=== PATIENT | male | born 1970 | race Caucasian/White ===

== ENCOUNTER 2019-11-03 03:46 | Emergency (ER) | payer MEDICARE, SELFPAY ==
[2019-11-03 03:50] VITALS: BP 117/69; PULSE 73; RESP 20; TEMP 36.3; O2SAT 98
--- NOTE | 2019-11-03 03:54 | ED.DENTAL ---
HPI - Dental/Oral General Stated complaint: tooth pain Time Seen by Provider: 11/03/19 03:55 Source: patient Mode of arrival: ambulatory Limitations: no limitations History of Present Illness HPI Narrative: 49-year-old male patient is here with the complaints of tooth pain. Patient states that about a week and a half ago he broke his right lower molar and since then the tooth has been irritating and has caused some abrasion to the undersurface of the tongue on the right side. Patient has not been seen by a dentist yet, patient states that the pain has been progressive and tonight he was unable to sleep because of the pain. He has had multiple dental fillings in the past and his last visit with the dentist was over a year ago. Patient does state that the pain has been progressive and he has been unable to eat solid foods. He denies any fever or chills, drooling and or inability to speak . Related Data Home Medications Medication Instructions Recorded Confirmed acetaminophen-codeine 1 tablet PO PRN PRN 11/03/19 11/03/19 atorvastatin 10 mg PO DAILY 11/03/19 11/03/19 famotidine 20 mg PO DAILY 11/03/19 11/03/19 Allergies Allergy/AdvReac Type Severity Reaction Status Date / Time No Known Allergies Allergy Verified 07/02/18 06:26 Review of Systems Review of Systems: All systems reviewed & are unremarkable except as noted in HPI and below PMFSH Past Medical History Medical History (Updated 11/03/19 @ 04:17 by Patricia Brush MD) Acid reflux disease Hypercholesteremia Social History Social History Smoking status: Never smoker Exam Const: General: healthy appearing, no acute distress and alert Orientation/consciousness: patient oriented x3 HENMT: Head: normal to inspection Mouth: Yes Normal oral and palatal mucosa present and Yes moist mucous membranes Teeth and gingiva: abnormal tooth and associated gingiva (Multiple fillings . # 30 is broken and tender , the filling is partially in) Throat: uvula midline Other: A small superficial ulceration is noted on the right lateral side of the tongue , no active bleeding or redness is seen Eyes: Pupils: Equal, round and reactive pupils present Neck: Neck: normal visual inspection and no lymphadenopathy Resp: Effort & Inspection: normal respiratory effort Cardio: Rate: regular rate Rhythm: regular rhythm Skin: General skin exam: normal color Rashes: no rashes Neuro: General: patient oriented x3 and no focal motor deficits Speech: normal speech Extrem: General: normal to inspection Psych: Mental Status: mental status grossly normal MDM - Dental/Oral MDM Narrative Medical decision making narrative: Dental fracture Will get the patient started on antibiotics. He states that he does not want anything for pain. Differential Diagnosis Differential diagnosis: Likely gingival abscess, dental caries, toothache, dental abscess, fracture of tooth and aphthous ulcer Discharge Plan Discharge Clinical Impression: Pain due to dental caries, Fracture of dental hoahaoism Patient Disposition: Home, Self-Care Condition: Stable Instructions: Antibiotic Form, Acute Dental Trauma (ED) Additional Instructions: Soft diet Follow up with the dentisit Prescriptions: New amoxicillin-pot clavulanate [Augmentin] 875-125 mg tablet 1 tablet PO Q12H Qty: 20 RF: 0 No Action atorvastatin 10 mg tablet 10 mg PO DAILY RF: 0 famotidine 20 mg tablet 20 mg PO DAILY RF: 0 acetaminophen-codeine 300-60 mg tablet 1 tablet PO PRN PRN (Reason: Pain) RF: 0 Follow-up/Referrals: NON-NURSING STAFF,ADMISSIONS [Primary Care Provider] -
[2019-11-03] MEDS: AMOXICILLIN/CLAVULANATE K 875-125 MG TAB 1 TABLET PO (04:16)
[2019-11-03 04:17] VITALS: BP 117/69; PULSE 73; RESP 20; TEMP 36.3; O2SAT 98
== END 2019-11-03 04:24 | disposition home or self-care (01) ==
PROVIDERS: Emergency Provider Emergency Medicine
DX: K08.89 Other specified disorders of teeth and supporting structures (principal); K02.9 Dental caries, unspecified; K08.539 Fractured dental restorative material, unspecified
CPT/HCPCS: 99283; A9270

== ENCOUNTER 2019-12-29 13:07 | Emergency (ER) | payer MEDICARE, SELFPAY ==
--- NOTE | ~2019-12-29 | XR_ITS ---
XR chest 1V portable DATE: 12/29/2019 13:40 INDICATION: Dyspnea for 2 days. History of Covid exposure. TECHNIQUE: Portable upright AP chest on 12/29/2019 at 1337 hours COMPARISON: 04/15/2012 two-view chest 04/15/2012 CT pulmonary scan FINDINGS: Normal heart size. No hilar or mediastinal enlargement. Mild aortic unfolding. No pulmonary infiltrate or consolidation, pleural effusion or pulmonary vascular congestion or pneumo thorax. Osteopenia. IMPRESSION: No active cardiopulmonary disease Reviewed, dictated and finalized at location A.
[2019-12-29 13:10] VITALS: BP 104/58; PULSE 86; RESP 26; TEMP 36.5; O2SAT 99
--- NOTE | 2019-12-29 13:19 | ECG_ITS ---
Measurements Intervals [place] Rate: 77 P: 59 NV: 192 QRS: 50 QRSD: 106 T: 41 QT: 356 QTc: 404 Interpretive Statements SINUS RHYTHM BASELINE WANDER- V1 NORMAL ECG Electronically Signed On 12-29-2019 13:51:12 CDT by Woody Franco D.O.
--- NOTE | 2019-12-29 13:19 | ED.SOB ---
HPI - SOB/Dyspnea General Chief Complaint: Shortness of Breath/Dyspnea Stated Complaint: ambulance Related Data Home Medications Medication Instructions Recorded Confirmed acetaminophen-codeine 1 tablet PO PRN PRN 11/03/19 11/03/19 atorvastatin 10 mg PO DAILY 11/03/19 11/03/19 famotidine 20 mg PO DAILY 11/03/19 11/03/19 Allergies Allergy/AdvReac Type Severity Reaction Status Date / Time No Known Allergies Allergy Verified 07/02/18 06:26 [facility], [facility] Past Medical History Medical History (Updated 11/04/19 @ 00:00 by Rabia Gramajo) Acid reflux disease Hypercholesteremia Social History Social History Smoking status: Never smoker Discharge Plan Discharge Prescriptions: No Action atorvastatin 10 mg tablet 10 mg PO DAILY RF: 0 famotidine 20 mg tablet 20 mg PO DAILY RF: 0 acetaminophen-codeine 300-60 mg tablet 1 tablet PO PRN PRN (Reason: Pain) RF: 0 amoxicillin-pot clavulanate [Augmentin] 875-125 mg tablet 1 tablet PO Q12H Qty: 20 RF: 0
[2019-12-29 13:29] VITALS: O2SAT 97
--- NOTE | 2019-12-29 13:45 | PC.NURSE ---
Pt refusing abg, edp aware.
[2019-12-29 13:48] LABS: Basophils Absolute Auto 0.05 K/mm3 (0.00-0.10); Eosinophils Percent Auto 2.1 % (1.0-6.0); Hematocrit 46.7 % (40.0-54.0); Immature Granulocyte Absolute 0.02 K/mm3 (0.00-0.00); Immature Granulocyte Percent A 0.4 % (0.0-0.0); Lymphocytes Absolute Auto 1.71 K/mm3 (1.10-4.50); Lymphocytes Percent Auto 35.6 % (18.0-42.0); Mean Corpuscular HGB Conc 36.4 g/dL (32.0-36.0); Mean Corpuscular Hemoglobin 31.3 pg (27.0-31.0); Mean Platelet Volume 10.3 fl (8.7-11.0); Monocytes Absolute Auto 0.43 K/mm3 (0.10-0.90); Neutrophils Absolute Auto 2.5 K/mm3 (1.7-7.2); Neutrophils Percent Auto 51.9 % (50.0-70.0); Platelet Count Result 190 K/mm3 (150-420); Red Blood Count 5.43 M/mm3 (4.70-6.10); Red Cell Distribution Width 12.3 % (11.6-14.4); White Blood Count 4.8 K/mm3 (4.8-10.8)
[2019-12-29 14:07] LABS: BNP 5.5 pg/mL (0-100); Lactic Acid 1.5 mmol/L (0.4-2.0)
[2019-12-29 14:09] LABS: Alanine Aminotransferase 35 U/L (16-63); Albumin Level 3.7 g/dL (3.4-5.0); Alkaline Phosphatase 98 U/L (46-116); Anion Gap 9 mmol/L (8-16); Aspartate Amino Transferase 26 U/L (15-37); Bilirubin,Total 0.5 mg/dL (0.00-1.00); Blood Urea Nitrogen 14 mg/dL (7-18); Calcium 9.3 mg/dL (8.5-10.1); Carbon Dioxide 23 mmol/L (21-32); Chloride 104 mmol/L (98-108); Estimated CRCL calculation 51 ml/min; Estimated Glomerular Filt Rate 52; Glucose 106 mg/dL (70-99); Magnesium 1.9 mg/dL (1.8-2.4); Osmolality Calculated 282 mOsm/kg (285-295); Potassium 3.8 mmol/L (3.5-5.1); Sodium 136 mmol/L (136-145); Total Protein 7.7 g/dL (6.4-8.2)
[2019-12-29 14:11] LABS: Troponin I < 0.02 ng/mL (0.00-0.056)
[2019-12-29 14:26] VITALS: BP 132/77; PULSE 86; RESP 20; O2SAT 98
[2019-12-29 16:08] LABS: D Dimer 0.27 ug/mL (<0.48)
== END 2019-12-29 14:29 | disposition home or self-care (01) ==
PROVIDERS: Emergency Provider Emergency Medicine
DX: J06.9 Acute upper respiratory infection, unspecified (principal)
CPT/HCPCS: 36415; 36600; 71045; 80053; 83605; 83735; 83880; 84484; 85025; 85380; 87040; 93005; 99283; 99284

== ENCOUNTER 2021-03-18 12:47 | Outpatient (CLI) | payer MEDICARE, SELFPAY ==
[2021-03-18 12:58] LABS: Basophils Absolute Auto 0.04 K/mm3 (0.00-0.10); Basophils Percent Auto 0.7 % (0.0-1.0); Eosinophils Absolute Auto 0.08 K/mm3 (0.02-0.50); Eosinophils Percent Auto 1.4 % (1.0-6.0); Hematocrit 49.9 % (40.0-54.0); Hemoglobin 17.5 g/dL (14.0-18.0); Immature Granulocyte Absolute 0.02 K/mm3 (0.00-0.00); Immature Granulocyte Percent A 0.4 % (0.0-0.0); Lymphocytes Absolute Auto 1.63 K/mm3 (1.10-4.50); Lymphocytes Percent Auto 28.6 % (18.0-42.0); Mean Corpuscular HGB Conc 35.1 g/dL (32.0-36.0); Mean Corpuscular Hemoglobin 30.5 pg (27.0-31.0); Mean Corpuscular Volume 86.9 fL (78.0-102.0); Mean Platelet Volume 9.8 fl (8.7-11.0); Monocytes Absolute Auto 0.58 K/mm3 (0.10-0.90); Monocytes Percent Auto 10.2 % (2.0-11.0); Neutrophils Absolute Auto 3.3 K/mm3 (1.7-7.2); Neutrophils Percent Auto 58.7 % (50.0-70.0); Platelet Count Result 211 K/mm3 (150-420); Red Blood Count 5.74 M/mm3 (4.70-6.10); Red Cell Distribution Width 12.3 % (11.6-14.4); White Blood Count 5.7 K/mm3 (4.8-10.8)
[2021-03-18 13:38] LABS: Alanine Aminotransferase 36 U/L (16-63); Albumin Level 4.1 g/dL (3.4-5.0); Alkaline Phosphatase 112 U/L (46-116); Aspartate Amino Transferase 30 U/L (15-37); Bilirubin Direct 0.2 mg/dL (0-0.2); Bilirubin,Total 0.8 mg/dL (0.00-1.00); Cholesterol 183 mg/dL (0-200); HDL Direct 40 mg/dL (40-60); LDL Cholesterol Calculated 120 mg/dL (<130); Prostate Specific Antigen 2.4 ng/mL (< OR = 4.0); Total Protein 7.5 g/dL (6.4-8.2); Triglycerides 115 mg/dL (0-150)
[2021-03-23 11:09] LABS: Testosterone Free 79.1 pg/mL (35.0-155.0); Testosterone Total 659 ng/dL (250-1100)
== END 2021-03-18 12:48 | disposition home or self-care (01) ==
LOC: CHSLAB 12:49
PROVIDERS: PCP Family Medicine; Visit Provider Family Medicine
DX: E78.00 Pure hypercholesterolemia, unspecified (principal); Z13.220 Encounter for screening for lipoid disorders; Z12.5 Encounter for screening for malignant neoplasm of prostate; N52.9 Male erectile dysfunction, unspecified
CPT/HCPCS: 36415; 80061; 80076; 84153; 84402; 84403; 85025; G0103

== ENCOUNTER 2021-09-14 16:30 | Outpatient (CLI) | payer MEDICARE, SELFPAY ==
[2021-09-14 17:04] LABS: Anion Gap 12 mmol/L (8-16); Blood Urea Nitrogen 15 mg/dL (7-18); Calcium 9.6 mg/dL (8.5-10.1); Carbon Dioxide 22 mmol/L (21-32); Chloride 103 mmol/L (98-108); Estimated Glomerular Filt Rate > 60; Glucose 95 mg/dL (70-99); Osmolality Calculated 284 mOsm/kg (285-295); Potassium 4.5 mmol/L (3.5-5.1); Sodium 137 mmol/L (136-145)
== END 2021-09-14 16:31 | disposition home or self-care (01) ==
LOC: CHSLAB 16:31
PROVIDERS: PCP Family Medicine; Visit Provider Family Medicine
DX: M32.8 Other forms of systemic lupus erythematosus (principal)
CPT/HCPCS: 36415; 80048

== ENCOUNTER 2021-10-31 12:19 | Outpatient (CLI) | payer MEDICARE, SELFPAY ==
--- NOTE | ~2021-10-31 | XR_ITS ---
EXAMINATION: XR finger 4th LT min 2V DATE: 10/31/2021 12:44 INDICATION: Pain at the fourth proximal phalanx and metacarpophalangeal joints TECHNIQUE: Dorsal palmar, lateral and 2 oblique views of the right fourth digit were obtained COMPARISON: None FINDINGS: Bone alignment is normal. No fracture. Mild osteoarthritis at the and third-fifth distal interphalang eal joints. Soft tissues are unremarkable. No erosions to suggest inflammatory arthritis. Soft tissue s are unremarkable. IMPRESSION: 1. 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 No acute osseous abnorma lity. Reviewed, dictated and finalized at location A. IMPRESSION: 1. 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 No acute osseous abnormality.
== END 2021-10-31 12:20 | disposition home or self-care (01) ==
LOC: CHSIMG 12:22
PROVIDERS: PCP Family Medicine; Visit Provider Family Medicine
DX: S69.90XA Unspecified injury of unspecified wrist, hand and finger(s), initial encounter (principal)
CPT/HCPCS: 73140

== ENCOUNTER 2022-03-21 08:31 | Outpatient (CLI) | payer MEDICARE, SELFPAY ==
[2022-03-21 08:44] LABS: Basophils Absolute Auto 0.04 K/mm3 (0.00-0.10); Basophils Percent Auto 0.7 % (0.0-1.0); Eosinophils Absolute Auto 0.22 K/mm3 (0.02-0.50); Eosinophils Percent Auto 4.1 % (1.0-6.0); Hematocrit 47.9 % (40.0-54.0); Hemoglobin 16.6 g/dL (14.0-18.0); Immature Granulocyte Absolute 0.03 K/mm3 (0.00-0.00); Immature Granulocyte Percent A 0.6 % (0.0-0.0); Lymphocytes Absolute Auto 1.61 K/mm3 (1.10-4.50); Lymphocytes Percent Auto 29.7 % (18.0-42.0); Mean Corpuscular HGB Conc 34.7 g/dL (32.0-36.0); Mean Corpuscular Hemoglobin 30.5 pg (27.0-31.0); Mean Corpuscular Volume 87.9 fL (78.0-102.0); Monocytes Absolute Auto 0.46 K/mm3 (0.10-0.90); Monocytes Percent Auto 8.5 % (2.0-11.0); Neutrophils Absolute Auto 3.1 K/mm3 (1.7-7.2); Neutrophils Percent Auto 56.4 % (50.0-70.0); Platelet Count Result 193 K/mm3 (150-420); Red Blood Count 5.45 M/mm3 (4.70-6.10); Red Cell Distribution Width 12.6 % (11.6-14.4); White Blood Count 5.4 K/mm3 (4.8-10.8)
[2022-03-21 09:50] LABS: Alanine Aminotransferase 94 U/L (16-63); Albumin Level 3.8 g/dL (3.4-5.0); Alkaline Phosphatase 96 U/L (46-116); Anion Gap 8 mmol/L (8-16); Aspartate Amino Transferase 61 U/L (15-37); Bilirubin Direct 0.1 mg/dL (0-0.2); Bilirubin,Total 0.5 mg/dL (0.00-1.00); Blood Urea Nitrogen 15 mg/dL (7-18); Calcium 8.9 mg/dL (8.5-10.1); Carbon Dioxide 28 mmol/L (21-32); Chloride 104 mmol/L (98-108); Cholesterol 204 mg/dL (0-200); Estimated Glomerular Filt Rate > 60; Glucose 94 mg/dL (70-99); HDL Direct 51 mg/dL (40-60); LDL Cholesterol Calculated 123 mg/dL (<130); Osmolality Calculated 290 mOsm/kg (285-295); Potassium 4.2 mmol/L (3.5-5.1); Sodium 140 mmol/L (136-145); Total Protein 7.2 g/dL (6.4-8.2); Triglycerides 152 mg/dL (0-150)
== END 2022-03-21 08:32 | disposition home or self-care (01) ==
LOC: CHSLAB 08:34
PROVIDERS: PCP Family Medicine; Visit Provider Family Medicine
DX: M32.9 Systemic lupus erythematosus, unspecified (principal); E78.00 Pure hypercholesterolemia, unspecified; Z13.220 Encounter for screening for lipoid disorders; Z12.5 Encounter for screening for malignant neoplasm of prostate; M65.342 Trigger finger, left ring finger
CPT/HCPCS: 36415; 80048; 80061; 80076; 84153; 85025; G0103

== ENCOUNTER 2022-04-07 10:40 | Outpatient (CLI) | payer MEDICARE, SELFPAY ==
[2022-04-11 02:44] LABS: Hepatitis A Antibody IgM Nonreactive; Hepatitis B Core Antibody Nonreactive (Nonreactive); Hepatitis B Surface Antigen Nonreactive (Nonreactive); Hepatitis C Signal to Cutoff 0.01 ratio (<1.00); Hepatitis C Virus Antibody Nonreactive (Nonreactive)
== END 2022-04-07 10:41 | disposition home or self-care (01) ==
LOC: CHSLAB 10:42
PROVIDERS: PCP Family Medicine; Visit Provider Family Medicine
DX: R79.89 Other specified abnormal findings of blood chemistry (principal); R74.01 Elevation of levels of liver transaminase levels
CPT/HCPCS: 36415; 80074

== ENCOUNTER 2022-12-07 13:31 | Outpatient (CLI) | payer MEDICARE, SELFPAY ==
--- NOTE | 2022-12-07 14:09 | ECG_ITS ---
Measurements Intervals [place] Rate: 77 P: 52 WV: 201 QRS: -7 QRSD: 114 T: 42 QT: 360 QTc: 409 Interpretive Statements SINUS RHYTHM BORDERLINE AV CONDUCTION DELAY INTRAVENTRICULAR CONDUCTION DELAY BORDERLINE ECG COMPARED TO ECG 12/29/2019 13:36:07 INTRAVENTRICULAR CONDUCTION DELAY NOW PRESENT Electronically Signed On 12-07-2022 14:16:28 CDT by Woody Franco D.O.
[2022-12-07 15:04] LABS: Prothrombin Time 13.1 Seconds (11.1-14.7)
[2022-12-07 15:05] LABS: Partial Thromboplastin Time 29.1 SECONDS (22.3-36.8)
[2022-12-07 15:07] LABS: Anion Gap 5 mmol/L (8-16); Blood Urea Nitrogen 16 mg/dL (9-20); Calcium 8.8 mg/dL (8.4-10.2); Carbon Dioxide 28 mmol/L (22-30); Chloride 104 mmol/L (98-107); Estimated Glomerular Filt Rate > 60; Glucose 96 mg/dL (65-110); Potassium 3.9 mmol/L (3.4-5.0); Sodium 137 mmol/L (137-145)
== END 2022-12-07 13:32 | disposition home or self-care (01) ==
PROVIDERS: PCP Family Medicine; Visit Provider Anesthesiology
DX: K40.90 Unilateral inguinal hernia, without obstruction or gangrene, not specified as recurrent (principal); N28.9 Disorder of kidney and ureter, unspecified; E78.00 Pure hypercholesterolemia, unspecified; Z01.818 Encounter for other preprocedural examination
CPT/HCPCS: 36415; 80048; 85610; 85730; 86850; 86900; 86901; 93005

== ENCOUNTER 2022-12-13 04:22 | Day surgery (SDC) | payer MEDICARE, SELFPAY ==
--- NOTE | 2022-12-05 15:37 | PC.NURSE ---
Report to the Outpatient Waiting Room, entrance under the green pavilion located off [facility], at time 0600 on date 12/13/22. Planned Procedure Time: 0730. Time changes happen often and if your time is changed the preop area will call you the afternoon before. - You and your visitor will be asked to self-screen and do not enter if you have any COVID symptoms. - A mask is optional within the hospital at this time. Patients may have clear liquids (water, carbonated beverages, clear teas, apple juice) until 3 hours prior to surgery with a maximum of 20 ounces. 0430 - No food from midnight until time of surgery - Infants may have breast milk until 4 hours before surgery, formula 6 hours prior to surgery. - Children will be allowed to drink immediately following surgery. If applicable, please bring a bottle or sippy cup to assist with drinking. Juice, water, soda, and popsicles are readily available. For infants on formula, please bring formula the day of surgery. Pacifiers are allowed. Take the following medications with a SIP of water the morning of surgery: none DO NOT STOP ANY OF YOUR OTHER PRESCRIPTION MEDICATIONS PRIOR TO SURGERY ?EXCEPT THE FOLLOWING Medications to discontinue per physician atorvastatin, famotadine, sildenafil Date to take last dose12/12/22 Please no make-up, nail urdu, hairspray, perfume, deodorant, or body powder the day of surgery. No jewelry (including any body piercings) or valuables the day of surgery, leave them at home. Please take a shower or bath the night before, or the morning of, surgery with an antibacterial soap HIBICLENS. Wear comfortable, loose fitting clothing. Children are encouraged to wear pajamas. - Jewelry must be removed prior to entering the operating room. Rings and piercings that are not removed may be cut off. - The hospital will not accept responsibility for valuables. - Please leave all valuables, including medications, at home the day of surgery. If you are going home after surgery, a licensed water truck driver must drive you home. - NO public transportation without another adult if you receive anesthesia. - We recommend that an adult stay with you for 24 hours following discharge. - We also recommend that you do not drive, make important decision, drink alcoholic beverages, or take any drugs that were not prescribed by your health care provider for at least 24 hours after your discharge time. For Pediatric surgeries, we recommend two adults accompany the child home. Follow any additional instructions given to you from your surgeon. If you or anyone in your household have experienced Covid symptoms in the past week, please notify your surgeon or the nurse liaison at the phone number below for possible testing. Telephone instructions given to Brock Gaspar and asked if any additional questions and then verbalized understanding. Patient advised to call surgeon office or pre surgery nurse liaison [phone] if any additional questions.
[2022-12-05 15:50] VITALS: BMI 27.4
--- NOTE | 2022-12-12 10:10 | WPDANESEPPF ---
Anes - Initial Pre Proc Eval Procedure: Operation Date: 12/13/22 07:30 Proposed Procedures p Laparoscopic Right Inguinal Hernia Repair with Mesh, Davinci Assisted - Osmar Grigsby DO Date/Time: 12/12/22 10:10 Surgeon: Osmar Grigsby DO Pre Op Diagnosis: Right Inguinal Hernia Patient Data Age: 52 Gender: M Height: 1.7 m Weight: 79.5 kg Allergies Allergy/AdvReac Type Severity Reaction Status Date / Time No Known Allergies Allergy Verified 12/13/22 06:16 Home Medications Medication Instructions Recorded Confirmed Type sildenafil 100 mg tablet 100 mg PO DAILY PRN sexual 07/19/22 12/05/22 Rx activity #30 tabs acetaminophen 300 mg-codeine 60 mg 1 tablet PO Q8H PRN Pain #90 tabs 11/17/22 12/05/22 Rx tablet famotidine 20 mg tablet 20 mg PO DAILY #90 tabs 11/17/22 12/05/22 Rx atorvastatin 10 mg tablet 10 mg PO DAILY 12/05/22 12/05/22 History hydrocodone 5 mg-acetaminophen 325 1 tablet PO Q4H PRN pain #10 tabs 12/13/22 Rx mg tablet Patient hx anesthesia problems: none Family hx anesthesia problems: none Results Review: All pre-operative results and documents have been reviewed as part of the pre-operative evaluation. [facility] Past Medical History Medical History (Updated 11/27/22 @ 13:45 by Sheela Pantoja) Acid reflux disease BMI 25.0-25.9,adult BMI 26.0-26.9,adult Elevated liver function tests Elevated PSA Erectile dysfunction History of blood transfusion Hx pulmonary embolism Hypercholesteremia Left trigger finger Lupus Screen for colon cancer Screening for prostate cancer Social History Social History Smoking status: Never smoker Alcohol intake: never Substance use: current Substance use type: marijuana Other substance usage details: daily user Living arrangements: with family Occupation/Education: other Additional occupation/education comments: Disabled Gender identity (if verbalized by the patient): Male Sexual Orientation (if Verbalized by the Patient): Straight or Heterosexual Spiritual care concerns: No Anes - Eval Final PreProcedure Day of Procedure 12/12/22 10:10 Patient weight: overweight Heart: regular rate and rhythm Lungs: clear to auscultation Airway: Mallampati scale class II Neurological: alert and oriented Last oral intake: >/= 8 hours ASA classification: III Emergent: no Anesthetic plan: proceed Anesthesia type and monitoring: general ETT and standard monitoring Results Review: All pre-operative results and documents have been reviewed as part of the pre-operative evaluation. Informed Consent: The patient's anesthetic plan and its attendant risks and benefits were discussed with the patient/family/POA. Questions were solicited and answers provided to the satisfaction of the patient/family/POA.
[2022-12-13] VITALS (9 sets, daily range): BP systolic 116–141; BP diastolic 80–101; PULSE 63–79; RESP 14–20; TEMP 36.4–36.6; O2SAT 97–100
[2022-12-13] MEDS: ACETAMINOPHEN 500 MG TABLET 1000 MG PO (06:27)
[2022-12-13] MEDS: LACTATED RINGERS 1,000 ML 30 ML IV CONT ×2 (06:40→09:06)
--- NOTE | 2022-12-13 07:09 | WPDHPUPDATE1 ---
History and Physical Update Update Date/Time: 12/13/22 07:09 History and Physical has been reviewed, including an updated exam of the patient. There are NO changes in the patient's condition. Risks, benefits, and alternatives have been discussed and questions answered. Patient agrees to proceed with procedure.
[2022-12-13] MEDS: KETOROLAC 15 MG/ML VIAL (*BKC) IV PUSH (07:12)
[2022-12-13] MEDS: ceFAZolin 2 GM/D5W 50 ML 2 GM/50 ML BAG IVPB (07:26)
[2022-12-13] MEDS: BUPIVACAINE/EPINEPHRINE 0.5% 10 ML VIAL 22 ML INFILTRATE (07:57)
--- NOTE | 2022-12-13 08:37 | W.PM.PROC2 ---
Procedure Note - Detailed Date of Procedure 12/13/22 Pre-op Diagnosis Right Inguinal Hernia Post-op Diagnosis Same (Indirect RIH) Procedure Performed Laparoscopic right inguinal hernia repair with mesh, da Mulu assisted Surgeon Osmar Grigsby DO Anesthesia General and Local (0.5% bupivacaine with epinephrine) Indications This is a 52-year-old man who noticed a right inguinal bulge about 4 months ago. He has some discomfort in this area. He was found to have a reducible right inguinal hernia on physical exam. Discussions were made with the patient about treatment options and decision was made to proceed with robotic assisted laparoscopic right inguinal hernia repair with mesh. Findings Laparoscopic right inguinal hernia repair was performed. The patient was found to have a small indirect right inguinal hernia. A robotic transabdominal preperitoneal approach was utilized. Once a wide enough preperitoneal pocket was created and the hernia sac was reduced, I then placed a large right Bard 3DMax mid mesh overlying the entire right myopectineal orifice. Description of Procedure Procedure as well as risks, benefits, and alternatives were discussed with the patient. Written consent was obtained and placed in chart prior to procedure. Patient was brought back to surgical suite. He was placed supine on operating table. Time-out was done to confirm patient and procedure. He was then intubated by Anesthesia Department. His abdomen was prepped and draped in sterile fashion using chlorhexidine prep. 0.5% bupivacaine with epinephrine was infiltrated at each location for incision. An 8 mm incision was made in the left lateral abdomen, and a 5 mm Optiview trocar was advanced through the abdominal layers under direct visualization. Once inside the abdominal cavity, carbon dioxide insufflation was used to create a pneumoperitoneum. A camera was inserted and the abdominal cavity was inspected. The patient was placed in slight Trendelenburg position. An 8 millimeter incision was made on the right lateral abdomen and an 8 millimeter trocar was inserted under direct visualization. Another 8 millimeter incision was made just superior to the umbilicus and an 8 millimeter trocar was inserted under direct visualization. The 5 mm port was then removed and this was replaced with another 8 mm robotic port. The robotic arms were brought up to the patient's bedside and secured to the ports. The camera and instruments were inserted. I then moved over to the robotic console and took control of the camera and instruments. After careful inspection of the abdominal cavity, I began scoring the peritoneum along the right lower quadrant using scissors with electrocautery. The preperitoneal plane was entered and this was carefully dissected caudally along the inferior epigastric vessels. Careful dissection with scissors with electrocautery and blunt dissection was used to continue this dissection. I dissected far enough laterally to allow for mesh placement, and also dissected medially to identify the pubic arch and Vu's ligament. The hernia sac was identified and carefully dissected posteriorly. The cord contents were also identified and the peritoneum was carefully dissected far enough posteriorly to allow for mesh placement. Once an adequate pocket was created, I then placed the mesh within the preperitoneal pocket and carefully unfolded it. The mesh was centered on the hernia defect with adequate overlap circumferentially. The inferior edge of the mesh was inspected to ensure that it was far enough away from the peritoneal edge. The mesh appeared in proper position overlying the entire myopectineal orifice. The mesh was secured using 3-0 Vicryl simple interrupted sutures in Vu's ligament, the superior medial edge, and superior lateral edge of the mesh. The peritoneum was then closed over the mesh using a 3-0 V-lock running absorbable suture. The robotic instrument
[2022-12-13] MEDS: oxyCODONE HCL (*CRX) 5 MG TAB IR PO (10:06)
== END 2022-12-13 11:00 | disposition home or self-care (01) ==
PROVIDERS: PCP Family Medicine; Visit Provider Surgery
PROC: 8E0Y4CZ Robotic Assisted Procedure of Lower Extremity, Percutaneous Endoscopic Approach (ICD-10-PCS; CPT 49650; principal; 2022-12-13 07:30)
DX: K40.90 Unilateral inguinal hernia, without obstruction or gangrene, not specified as recurrent (principal); K21.9 Gastro-esophageal reflux disease without esophagitis; E78.00 Pure hypercholesterolemia, unspecified; Z86.711 Personal history of pulmonary embolism; F12.90 Cannabis use, unspecified, uncomplicated
CPT/HCPCS: 49650; S2900; 36415; 80048; 85610; 85730; 86850; 86900; 86901; 93005; A9270; C1781; J0690; J1100; J1885; J2250; J2405; J2704; J3010; J7030; J7120

== ENCOUNTER 2023-10-01 13:23 | Outpatient (CLI) | payer MEDICARE, SELFPAY ==
[2023-10-01 13:38] LABS: Basophils Absolute Auto 0.03 K/mm3 (0.00-0.10); Basophils Percent Auto 0.6 % (0.0-1.0); Eosinophils Absolute Auto 0.34 K/mm3 (0.02-0.50); Eosinophils Percent Auto 7.2 % (1.0-6.0); Hematocrit 48.7 % (40.0-54.0); Hemoglobin 16.8 g/dL (14.0-18.0); Immature Granulocyte Absolute 0.02 K/mm3 (0.00-0.00); Immature Granulocyte Percent A 0.4 % (0.0-0.0); Lymphocytes Absolute Auto 1.96 K/mm3 (1.10-4.50); Lymphocytes Percent Auto 41.6 % (18.0-42.0); Mean Corpuscular HGB Conc 34.5 g/dL (32-36); Mean Corpuscular Hemoglobin 29.7 pg (27.0-31.0); Mean Corpuscular Volume 86.2 fL (78.0-102.0); Monocytes Absolute Auto 0.45 K/mm3 (0.10-0.90); Monocytes Percent Auto 9.6 % (2.0-11.0); Neutrophils Absolute Auto 1.91 K/mm3 (1.70-7.20); Neutrophils Percent Auto 40.6 % (50.0-70.0); Platelet Count Result 191 K/mm3 (150-420); Red Blood Count 5.65 M/mm3 (4.70-6.10); Red Cell Distribution Width 12.8 % (11.6-14.4); White Blood Count 4.7 K/mm3 (4.8-10.8)
[2023-10-01 14:39] LABS: Alanine Aminotransferase 39 U/L (16-63); Albumin Level 3.6 g/dL (3.4-5.0); Alkaline Phosphatase 90 U/L (46-116); Anion Gap 10 mmol/L (4-12); Aspartate Amino Transferase 24 U/L (15-37); Bilirubin,Total 0.4 mg/dL (0.00-1.00); Blood Urea Nitrogen 15 mg/dL (7-18); Calcium 9.3 mg/dL (8.5-10.1); Carbon Dioxide 28 mmol/L (21-32); Chloride 102 mmol/L (98-108); Cholesterol 161 mg/dL (0-200); Estimated Glomerular Filt Rate > 60; Glucose 101 mg/dL (70-99); HDL Direct 48 mg/dL (40-60); LDL Cholesterol Calculated 78 mg/dL (<130); Osmolality Calculated 290 mOsm/kg (285-295); Potassium 4.1 mmol/L (3.5-5.1); Prostate Specific Antigen 3.2 ng/mL (< OR = 4.0); Sodium 140 mmol/L (136-145); Total Protein 6.9 g/dL (6.4-8.2); Triglycerides 175 mg/dL (0-150)
[2023-10-01 15:09] LABS: Thyroid Stimulating Hormone Reflex 1.43 u/IU/mL (0.36-3.74)
== END 2023-10-01 13:24 | disposition home or self-care (01) ==
LOC: CHSLAB 13:25
PROVIDERS: PCP Family Medicine; Visit Provider Physician Assistant
DX: E78.00 Pure hypercholesterolemia, unspecified (principal); R79.89 Other specified abnormal findings of blood chemistry; Z12.5 Encounter for screening for malignant neoplasm of prostate; M32.9 Systemic lupus erythematosus, unspecified
CPT/HCPCS: 36415; 80053; 80061; 84153; 84443; 85025; G0103

== ENCOUNTER 2025-01-20 09:07 | Emergency (ER) | payer MEDICARE, SELFPAY ==
[2025-01-20 09:08] VITALS: BP 128/82; PULSE 80; RESP 18; TEMP 37.1; O2SAT 96
--- NOTE | 2025-01-20 09:17 | ED_ITS ---
HPI - Head Injury General Chief complaint: Head Injury Stated complaint: hit head on corner of cabinet Time Seen by Provider: 01/20/25 09:17 Source: patient Mode of arrival: ambulatory Limitations: no limitations History of Present Illness HPI Narrative: patient was trying to get up from a kneeling position head the top of his head against the cabinet corner, prior to arrival. He denies any fever, chills, nausea, vomiting, headache, loss of consciousness or neck pain or other injuries patient does not remember when last time had tetanus shot and declined to get 1 today. Related Data Allergies Allergy/AdvReac Type Severity Reaction Status Date / Time No Known Allergies Allergy Verified 01/20/25 09:10 Review of Systems Review of Systems: All systems reviewed & are unremarkable except as noted in HPI and below PMFSH Past Medical History Medical History Hx pulmonary embolism History of blood transfusion Elevated PSA Elevated liver function tests Left trigger finger BMI 26.0-26.9,adult Erectile dysfunction Screen for colon cancer Screening for prostate cancer Lupus Acid reflux disease Hypercholesteremia Surgical History Surgical History H/O right inguinal hernia repair 12/13/22 right inguinal hernia repair with mesh, davinci assisted. Social History Social History Smoking status: Never smoker Alcohol intake: never Substance use: current Substance use type: marijuana Other substance usage details: daily user Do You Feel Safe in your Home?: Yes Lack of Transportation: No Lack of Food: Never True Current Housing: I Have Housing Concerned About Future Housing: No Difficulty Paying Gas/Electric Bills: No Difficulty Paying for Meds: No Currently Unemployed: No Education: High School Diploma/GED Difficulty w/ Childcare or Family Care: No Living arrangements: with family Occupation/Education: other Additional occupation/education comments: Disabled Gender identity (if verbalized by the patient): Male Sexual Orientation (if Verbalized by the Patient): Straight or Heterosexual Spiritual care concerns: No Exam Narrative: General appearance: Well-developed, well-nourished Skin: Normal color Head: Normocephalic, 1 cm abrasion at the top of the head Eyes: Clear conjunctiva ENT: Oropharynx normal, ears normal, nose normal Neck: Supple, nontender Chest and respiratory: Airway patent, no respiratory distress, no accessory muscle use Heart: Regular rate/rhythm Musculoskeletal: Normal range of motion, nontender back Neurologic: Alert and oriented ?3, [employer] is normal as tested, no gross motor deficit Course Vital Signs Vital signs: Vital Signs Temperature 37.1 C 01/20/25 09:08 Pulse Rate 80 01/20/25 09:08 Respiratory Rate 18 01/20/25 09:08 Blood Pressure 128/82 01/20/25 09:08 Pulse Oximetry 96 01/20/25 09:08 Oxygen Delivery Room Air 01/20/25 09:08 Temperature 37.1 C 01/20/25 09:08 Pulse Rate 80 01/20/25 09:08 Respiratory Rate 18 01/20/25 09:08 Blood Pressure 128/82 01/20/25 09:08 Pulse Oximetry 96 01/20/25 09:08 Oxygen Delivery Room Air 01/20/25 09:08 Critical Care Time Critical Care Time Critical Care Time: No Discharge Plan Discharge Clinical Impression: Abrasion of scalp Patient Disposition: Home Condition: Stable Instructions: Head Injury (ED), Abrasion (ED) Additional Instructions: Return if symptoms are worsening , call your family physician for appointment, take Tylenol as as needed for aches and pain, continue home medications. Topical Neosporin Patient Language: Urdu Prescriptions: No Action atorvastatin 10 mg tablet 10 mg PO DAILY Qty: 90 1RF famotidine 20 mg tablet 20 mg PO DAILY Qty: 90 1RF sildenafil 100 mg tablet 100 mg PO DAILY PRN (Reason: sexual activity) Qty: 30 2RF Rx Instructions: administer 30 minutes to 4 hours before activity acetaminophen-codeine 300-60 mg tablet 1 tablet PO Q8H PRN (Reason: Pain) Qty: 90 0RF Follow-up/Referrals: Angel Martinez MD [Primary Care Provider, Family Practice]
--- NOTE | 2025-01-20 09:17 | PC.NURSE ---
MD Naveen at bedside for pt examination. MD informs pt that he will need a tetnus shot. Pt refuses. MD educates pt on risks of not receiving tetanus vaccine. Pt still refusing after MD education.
--- OUTSIDE RECORDS SUMMARY | 2025-01-20 09:19 | XMS_ITS | Clinical Summary ---
Author Organization [facility] Address [address] [place] [address] Phone Care Team Providers Care Restaurant Line Server Name Role Phone Unavailable Primary Care Provider Unavailabl e Allergies No known active allergies Medications ibuprofen (ADVIL,MOTRIN) 200 MG tablet prn 06/16/2013 Active Active Problems Problem Noted Date Diagnosed Date Nonspecific abnormal results of function study o f kidney 05/10/2020 Pulmonary embolism 03/13/2019 Vitamin D deficiency 03/09/2014 Immunizations Immunization Administration Dates Next Due Influenza, Injectable, Quadrivalent 04/09/2020,1 Tdap 05/21/2010 Social History Tobacco Use Types Packs/Day Years Used Date Smoking Tobacco: Never Assessed Sex and Gender Information Value Date Recorded Sex Assigned at Not on file Legal Sex Male 8:15 AM [facility] Gender Identity Not on file Sexual Orientation Not on file Last Filed Vital Signs Vital Sign Reading Time Taken Comments Blood Pressure 100/70 03/09/2014 12:01 AM CDT Pulse 84 03/09/2014 12:01 AM CDT Temperature 36.4 C (97.6 F) 03/09/2014 12:01 AM CDT Respiratory Rate - - Oxygen Saturation - - Inhaled Oxygen Concentration - - Weight 70.3 kg (155 lb) 03/09/2014 12:01 AM CDT Height 170.2 cm (5' 7) 03/09/2014 12:01 AM CDT Body Mass Index 24.28 03/09/2014 12:01 AM CDT Plan of Treatment Health Maintenance Due Date Last Done Comments Influenza Vaccine (#1) 2025
[2025-01-20] MEDS: NEOMYCIN/POLYMYXIN/BACITRACIN OINTMENT 15 GM TUBE 1 APPLIC TOPICAL (09:39)
--- OUTSIDE RECORDS SUMMARY | 2025-01-20 09:41 | XMS_ITS | Clinical Summary ---
Author Organization [facility] Address [address] [place] [address] Phone Care Team Providers Care Hospital Director Name Role Phone Unavailable Primary Care Provider [...] on file Legal Sex Male 8:15 AM [facility] Gender Identity Not on file Sexual [...]
== END 2025-01-20 09:49 | disposition home or self-care (01) ==
LOC: CHSED 09:28
PROVIDERS: Emergency Provider Emergency Medicine; PCP Family Medicine
DX: S00.01XA Abrasion of scalp, initial encounter (principal); Z86.711 Personal history of pulmonary embolism; W22.09XA Striking against other stationary object, initial encounter
CPT/HCPCS: 99282; A9270